=== PATIENT | female | born 1990 | race African-American/Black ===

== ENCOUNTER 2017-02-20 08:17 | Emergency (ER) | payer BC ==
--- NOTE | 2017-02-20 09:50 | ER Document Report ---
ED Neck/Back Problem - General Chief Complaint: back pain,nasea Stated Complaint: NAUSEA Time seen by provider: 09:39 Mode of Arrival: Ambulatory Information source: Patient Notes: 26-year-old female presenting to ED this morning for complain of back pain that radiates around to her abdomen states she has a history of chronic back pain but that it started again this weekend. She states she was working on a computer when the back started hurting she had not done anything. TRAVEL OUTSIDE OF THE [place] IN LAST 30 DAYS: No - HPI Patient complains to provider of: Lower back Onset: Other - Chronic back pain that restarted this weekend Onset: Chronic Timing: Waxing and waning Quality of pain: Achy, Sharp Severity: Moderate Pain Level: 4 Recent injury: No Associated symptoms: Lower back pain, Other - Radiates around to the abdomen Exacerbated by: Movement of trunk, Sitting position Relieved by: Nothing Similar symptoms previously: Yes Recently seen / treated by doctor: No - Related Data Allergies/Adverse Reactions: No Known Allergies Allergy (Verified 02/20/17 08:56) Past Medical History - General Information source: Patient - Social History Smoking Status: Current Every Day Smoker Cigarette use (# per day): Yes - there are pack a day Chew tobacco use (# tins/day): No Smoking Education Provided: Yes - less than 2 minutes Frequency of alcohol use: Rare Drug Abuse: None 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 Lives with: Family Family History: Arthritis, CVA, DM, Hyperlipidemia, Hypertension, Malignancy Patient has suicidal ideation: No Patient has homicidal ideation: No - Past Medical History Cardiac Medical History: Reports: Hx Hypertension - PIH Pulmonary Medical History: Reports: None EENT Medical History: Reports: None Neurological Medical History: Reports: Hx Migraine Endocrine Medical History: Reports: None Renal/ Medical History: Reports: None Malignancy Medical History: Reports: None GI Medical History: Reports: Hx Gastroesophageal Reflux Disease, Hx Irritable Bowel, Hx Colonoscopy, Hx Endoscopy Musculoskeltal Medical History: Reports Hx Musculoskeletal Deformity Skin Medical History: Reports None Psychiatric Medical History: Reports: None, Hx Attention Deficit Hyperactivity Disorder, Hx Depression Infectious Medical History: Reports: None Past Surgical History: Reports: Hx Section - x1, Hx Cholecystectomy, Hx Tubal Ligation, Other - 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 - Immunizations Hx Diphtheria, Pertussis, Tetanus Vaccination: Yes - 04/23/2010 Review of Systems - Review of Systems Constitutional: No symptoms reported EENT: No symptoms reported Cardiovascular: No symptoms reported Respiratory: No symptoms reported Gastrointestinal: Abdominal pain Genitourinary: No symptoms reported Female Genitourinary: No symptoms reported Musculoskeletal: Back pain Skin: No symptoms reported Hematologic/Lymphatic: No symptoms reported Neurological/Psychological: No symptoms reported -: Yes All other systems reviewed and negative Physical Exam - Vital signs Vitals: Temp Pulse Resp BP Pulse Ox 98.5 F 73 16 116/88 H 96 02/20/17 08:24 02/20/17 08:24 02/20/17 08:24 02/20/17 08:24 02/20/17 08:24 Interpretation: Normal - General General appearance: Appears well, Alert - HEENT Head: Normocephalic, Atraumatic Eyes: Normal Pupils: PERRL - Respiratory Respiratory status: No respiratory distress Chest status: Nontender Breath sounds: Normal Chest palpation: Normal - Cardiovascular Rhythm: Regular Heart sounds: Normal auscultation Murmur: No - Abdominal Inspection: Normal Distension: No distension Bowel sounds: Normal Tenderness: Nontender. No: Tender, McBurney's point, Grier's sign, Guarding, Rebound Organomegaly: No organomegaly - Back Back: Normal, Tender - Muscle pain. No: Deformity/step-off, CVA tenderness, Vertebra tenderness, Scars, Scoliosis, Wounds - Extremities General upper extremity: Normal inspection, Nontender, Normal color, Normal ROM , Normal temperature General lower extremity: Normal inspection, Nontender, Normal color, Normal ROM , Normal temperature, Normal weight bearing. No: Petra's sign - Neurological Neuro grossly intact: Yes Cognition: Normal Orientation: AAOx4 Lauren Coma Scale Eye Opening: Spontaneous [place] Coma Scale Verbal: Oriented Lauren Coma Scale Motor: Obeys Commands Lauren Coma Scale Total: 15 Speech: Normal Motor strength normal: LUE, RUE, LLE, RLE Sensory: Normal - Psychological Associated symptoms: Normal affect, Normal mood - Skin Skin Temperature: Warm Skin Moisture: Dry Skin Color: Normal Course - Vital Signs Vital signs: Temp Pulse Resp BP Pulse Ox 98.1 F 64 20 110/76 97 02/20/17 09:45 02/20/17 09:45 02/20/17 09:45 02/20/17 09:45 02/20/17 09:45 Discharge - Discharge Clinical Impression: Nausea Low back pain Qualifiers: Chronicity: chronic Back pain laterality: bilateral Sciatica presence: without sciatica Qualified Code(s): M54.5 - Low back pain Condition: Stable Disposition: HOME, SELF-CARE Instructions: Stretching Exercises for the Back ([facility]) Additional Instructions: LOW BACK PAIN: Three out of every four people will have an episode of disabling back pain during their lifetime. Most commonly the pain is due to straining of the muscles and ligaments in the low back. Usual treatment includes: (1) Rest on a firm surface. Avoid lying on your stomach. (2) Ice pack the painful area. After a few days, gentle heat may be used intermittently to relax the area, or ice packs can be continued. (3) Medication may be needed -- muscle relaxers and antiinflammatory medicines are commonly used. (4) As the back improves, exercises are prescribed to strengthen the back and abdominal muscles. Your doctor will advise you on the proper care for your back at each stage in your recovery. You may be better in a few days -- or healing may take several weeks. If new symptoms of a "herniated disc" (radiation of pain, numbness, or tingling down the back of the leg or weakness in the leg) occur, you should be re-examined. Further testing may be necessary. ICE PACKS: Apply ice packs frequently against the painful area. Many different schedules are recommended, such as "20 minutes on, 20 minutes off" or "one hour ice, two hours rest." If you need to work, you may need to go longer between ice treatments. You should plan to have the area ice packed AT LEAST one fourth of the time. The ice should be applied over the wrap, tape, or splint, or over a layer of cloth -- not directly against the skin. Some ice bags have a built-in cloth and can be put directly on the skin. WARM PACKS: After approximately two days, apply gentle heat (such as a heating pad or hot water bottle) for about 20 to 30 minutes about every two hours -- at least four times daily. Warmth and elevation will help you make a more rapid recovery , and will ease the pain considerably. Do not use HOT heat, and never apply heat for longer than 30 minutes. The continuous heat can invisibly damage skin and muscles -- even when no burn is seen on the surface. Damaged muscles can make you MORE sore. FOLLOW-UP CARE: If you have been referred to a physician for follow-up care, call the physician s office for an appointment as you were instructed or within the next two days. If you experience worsening or a significant change in your symptoms, notify the physician immediately or return to the Emergency Department at any time for re-evaluation. Please complete the patient's satisfaction survey if you get one and return. If you do not receive a survey you can go to [facility] website [email or web address] and place your comments about your very good care. Thank you very much. It was a pleasure be in your medical provider today. Forms: Elevated Blood Pressure, Special Work Note, Smoking Cessation Education Referrals: SAI BETHEA, BAG PATCHER-C [Primary Care Provider] - Follow up as needed
[2017-02-20 09:52] VITALS: BP 110/76
== END 2017-02-20 09:56 | disposition home or self-care (01) ==
LOC: ER 08:17
DX: R11.0 Nausea (principal); M54.5 Low back pain; G89.29 Other chronic pain; F17.210 Nicotine dependence, cigarettes, uncomplicated; Z90.49 Acquired absence of other specified parts of digestive tract; Z98.51 Tubal ligation status
CPT/HCPCS: 99283

== ENCOUNTER 2018-09-13 08:27 | Emergency (ER) | payer BC ==
[2018-09-13] MEDS ORDERED: NORMAL SALINE 1000 ML 1,000 ML IV ONE (08:52)
--- NOTE | 2018-09-13 09:31 | ER Document Report ---
ED GI/ - General Chief Complaint: Lower Abdominal Pain Stated Complaint: ABDOMINAL PAIN Time Seen by Provider: 09/13/18 08:51 Notes: Patient is a 28-year-old female presenting to the emergency department complaining of vaginal bleeding and lower abdominal pain. Patient states her period started on 09/01/2018 lasting until 11 9 to the. Patient states that is a typical period for her. Patient states on 09/10/2018 she had a scant amount of blood in her underwear. States on 09/11/2018 she had no vaginal bleeding or pain on 09/12/2018 she continued with no vaginal bleeding or abdominal pain states this morning on she notes some bright red vaginal bleeding. States she has gone through one pad since this morning when the bleeding started. Patient is also complaining of generalized abdominal pain. Patient states she has a history of ovarian cyst but has never had them burst or any inconsistent vaginal bleeding from them. Patient states she is nauseated but has not vomited, denies fever, diarrhea, dysuria, malodorous vaginal discharge, chest pain, shortness of breath. Patient is stating that she has a generalized headache. Patient denies weakness , lightheadedness, dizziness. Patient states she has no history of anemia or clotting problems. Past medical history: Depression, ovarian cysts Medications: None Allergies: None Surgical history: Cholecystectomy Patient admits to cigarette smoking, marijuana use, occasional EtOH use. TRAVEL OUTSIDE OF THE [place] IN LAST 30 DAYS: No - Related Data Allergies/Adverse Reactions: No Known Allergies Allergy (Verified 09/13/18 08:32) Past Medical History - General Information source: Patient - Social History Smoking Status: Current Every Day Smoker Chew tobacco use (# tins/day): No Frequency of alcohol use: Occasional Drug Abuse: Marijuana Family History: Arthritis, CVA, DM, Hyperlipidemia, Hypertension, Malignancy Patient has suicidal ideation: No Patient has homicidal ideation: No - Past Medical History Cardiac Medical History: Reports: Hx Hypertension - PIH Denies: Hx Coronary Artery Disease, Hx Heart Attack Pulmonary Medical History: Denies: Hx Asthma, Hx Bronchitis, Hx COPD, Hx Pneumonia Neurological Medical History: Reports: Hx Migraine. 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 Denies: Hx Pacemaker - Immunizations Hx Diphtheria, Pertussis, Tetanus Vaccination: Yes - 04/23/2010 Review of Systems - Review of Systems Constitutional: See HPI EENT: No symptoms reported Cardiovascular: See HPI Respiratory: See HPI Gastrointestinal: See HPI Genitourinary: See HPI Female Genitourinary: See HPI Musculoskeletal: No symptoms reported Skin: No symptoms reported Hematologic/Lymphatic: See HPI Neurological/Psychological: See HPI Physical Exam - Vital signs Vitals: Temp Pulse Resp BP Pulse Ox 98.4 F 78 16 117/86 H 100 09/13/18 08:35 09/13/18 08:35 09/13/18 08:35 09/13/18 08:35 09/13/18 08:35 - Notes Notes: GENERAL: Alert, interacts well. No acute distress. HEAD: Normocephalic, atraumatic. EYES: Pupils equal, round, and reactive to light. Extraocular movements intact. ENT: Oral mucosa moist, tongue midline. NECK: Full range of motion. Supple. Trachea midline. LUNGS: Clear to auscultation bilaterally, no wheezes, rales, or rhonchi. No respiratory distress. HEART: Regular rate and rhythm. No murmur ABDOMEN: Soft Non-distended. Bowel sounds present in all 4 quadrants. Generalized tenderness entire abdomen, more so right suprapubic area. EXTREMITIES: Moves all 4 extremities spontaneously. No edema, normal radial and dorsalis pedis pulses bilaterally. No cyanosis. BACK: no cervical, thoracic, lumbar midline tenderness. No saddle anesthesia, normal distal neurovascular exam. NEUROLOGICAL: Alert and oriented x3. Normal speech. cranial nerves II through XII grossly intact PSYCH: Normal affect, normal mood. SKIN: Warm, dry, normal turgor. No rashes or lesions noted. Course - Re-evaluation Re-evalutation: Labs showed no signs of leukocytosis, no signs of anemia or excessive bleeding, no signs of electrolyte abnormalities, no signs of urinary tract infection. Ultrasound shows no signs of either ovary torsion or any other pelvic pathology. Patient states pain has since subsided. 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 Discussed that if pain returns she needs to return to the emergency room or be seen by her primary care provider. Repeat abdominal exam continues to reveal a soft nondistended abdomen. No Grier sign, no McBurney's point tenderness. Patient denies pelvic pain that she initially had on examination. Discussed with patient at length following up with AUTOMATIC VULCANIZING LEAD OPERATOR for abnormal uterine bleeding. Vitals assessed, nursing notes reviewed. - Vital Signs Vital signs: Temp Pulse Resp BP Pulse Ox 98.3 F 64 16 123/85 100 09/13/18 14:20 09/13/18 14:20 09/13/18 14:20 09/13/18 14:20 09/13/18 14:20 - Laboratory Result Diagrams: 09/13/18 09:14 09/13/18 09:14 Laboratory results interpreted by me: 09/13/18 09/13/18 09:14 09:14 MCV 79 L MCH 26.0 L RDW 15.4 H Urine Blood SMALL H Discharge - Discharge Clinical Impression: Pelvic pain, Abnormal uterine bleeding Condition: Stable Disposition: HOME, SELF-CARE Instructions: Pelvic Pain ([facility]) Additional Instructions: As we discussed you have been seen and treated in the emergency room for lower pelvic pain and vaginal bleeding. Your ultrasound shows no abnormalities and either your ovaries or uterus. Your labs also revealed no signs of anemia. You should follow-up with the AUTOMATIC VULCANIZING LEAD OPERATOR listed in this paperwork. Please return to the emergency room for any other concerning symptoms. Referrals: TC SNYDRE DO [ACTIVE STAFF] - Follow up as needed
[2018-09-13 09:58] LABS: ABSOLUTE EOSINOPHILS # (AUTO) 0.3 10^3/uL (0.0-0.6); ABSOLUTE LYMPHOCYTES (AUTO) 1.7 10^3/uL (0.5-4.7); ABSOLUTE MONOCYTES (AUTO) 0.5 10^3/uL (0.1-1.4); ABSOLUTE NEUT (AUTO) 4.7 10^3/uL (1.7-8.2); BASOPHILS % (AUTO) 0.5 % (0-2); EOSINOPHILS % (AUTO) 3.6 % (0-6); HEMATOCRIT 38.4 % (36.0-47.0); HEMOGLOBIN 12.6 g/dL (12.0-15.5); LYMPHOCYTES % (AUTO) 23.6 % (13-45); MEAN CORPUSCULAR HGB CONC 32.8 g/dL (32.0-36.0); MEAN CORPUSCULAR VOLUME 79 fl (80-97); MONOCYTES % (AUTO) 7.4 % (3-13); PLATELET COUNT 231 10^3/uL (150-450); RED BLOOD COUNT 4.85 10^6/uL (3.72-5.28); RED CELL DISTRIBUTION WIDTH 15.4 % (11.5-14.0); SEGMENTED NEUTROPHILS % (AUTO) 64.9 % (42-78); TOTAL CELLS COUNTED % (AUTO) 100 %; WHITE BLOOD COUNT 7.2 10^3/uL (4.0-10.5)
[2018-09-13 10:12] LABS: APPEARANCE,URINE CLEAR; BILIRUBIN,URINE NEGATIVE (NEGATIVE); COLOR,URINE YELLOW; GLUCOSE, URINE NEGATIVE (NEGATIVE); KETONES,URINE NEGATIVE (NEGATIVE); LEUKOCYTE ESTERASE,URINE NEGATIVE (NEGATIVE); NITRITE,URINE NEGATIVE (NEGATIVE); PROTEIN,URINE NEGATIVE (NEGATIVE); URINE SPECIFIC GRAVITY 1.016; UROBILINOGEN,URINE NEGATIVE mg/dL (<2.0)
[2018-09-13 10:18] LABS: ALANINE AMINOTRANSFERASE 30 U/L (9-52); ALBUMIN 4.5 g/dL (3.5-5.0); ALKALINE PHOSPHATASE 86 U/L (38-126); ANION GAP 10 (5-19); ASPARTATE AMINO TRANSFERASE 22 U/L (14-36); BLOOD UREA NITROGEN 10 mg/dL (7-20); CARBON DIOXIDE 29 mmol/L (22-30); CHLORIDE 104 mmol/L (98-107); POTASSIUM 4.5 mmol/L (3.6-5.0); SODIUM 143.4 mmol/L (137-145); TOTAL PROTEIN 7.7 g/dL (6.3-8.2)
[2018-09-13 10:20] LABS: GLUCOSE 78 mg/dL (75-110)
[2018-09-13 10:24] LABS: BILIRUBIN,TOTAL 0.2 mg/dL (0.2-1.3)
[2018-09-13 10:25] LABS: BILIRUBIN,DIRECT 0.2 mg/dL (0.0-0.4)
[2018-09-13] MEDS ORDERED: ONDANSETRON HCL INJ/PF 4 MG/2 ML SDV IV ONE (12:22)
[2018-09-13] MEDS ORDERED: MORPHINE SULFATE 10 MG/ML INJ IV ONE (12:22)
--- NOTE | 2018-09-13 13:30 | RADIOLOGY REPORT (SQ) ---
EXAM DESCRIPTION: U/S NON OB PEL TV W/DOPPLER COMPLETED DATE/TIME: 09/13/2018 1:14 pm REASON FOR STUDY: pelvic pain LMP 09/01/2018 COMPARISON: 09/13/2016 TECHNIQUE: Dynamic and static grayscale images acquired of the pelvis via transvaginal approach and recorded on PACS. Additional selected color Doppler and spectral images recorded. LIMITATIONS: None. FINDINGS: UTERUS: Contour normal. No mass. ENDOMETRIAL STRIPE: No focal or generalized thickening. No masses. CERVIX: 4.1 cm. No nabothian cysts. RIGHT OVARY AND DOPPLER: Normal size. No worrisome masses. Normal arterial vascular flow without evid ence for torsion. LEFT OVARY AND DOPPLER: Normal size. No worrisome masses. Normal arterial vascular flow without evide nce for torsion. FREE FLUID: None noted. OTHER: No other significant finding. MEASUREMENTS: UTERUS: 10.2 x 5.2 x 4.4 cm. ENDOMETRIAL STRIPE: 6 mm. RIGHT OVARY: 4.6 x 2.2 x 2.5 cm. LEFT OVARY: 3.8 x 2 x 2.2 cm. IMPRESSION: NORMAL TRANSVAGINAL PELVIC ULTRASOUND. TECHNICAL DOCUMENTATION: JOB ID: [id number] [employer]- All Rights Reserved Rev-03/16 Reading location - IP/workstation name: [email or web address]
[2018-09-13 14:21] VITALS: BP 123/85
== END 2018-09-13 14:23 | disposition home or self-care (01) ==
LOC: ER 08:27
DX: R10.2 Pelvic and perineal pain (principal); R10.30 Lower abdominal pain, unspecified; N93.8 Other specified abnormal uterine and vaginal bleeding; F17.210 Nicotine dependence, cigarettes, uncomplicated; Z90.49 Acquired absence of other specified parts of digestive tract; Z98.51 Tubal ligation status
CPT/HCPCS: 99284; 96360; 96361; 36415; 85025; 81025; 80053; 81001; 76830; 93976; J7030

== ENCOUNTER 2019-03-07 08:27 | Emergency (ER) | payer BC ==
--- NOTE | 2019-03-07 10:01 | ER Document Report ---
ED Medical Screen (RME) - General Chief Complaint: Abdominal Pain Stated Complaint: PELVIC PAIN Time Seen by Provider: 03/07/19 09:59 Mode of Arrival: Ambulatory Information source: Patient Notes: Patient states she was sleeping and felt a sudden pop in the left side of her abdomen about 1:00 this morning. Patient states she has persistent stabbing sharp pain to this area. Patient denies any nausea vomiting or diarrhea. Patient denies any urinary symptoms. Patient does report a history of ovarian cyst and suspects this today. I have greeted and performed a rapid initial assessment of this patient. A comprehensive ED assessment and evaluation of the patient, analysis of test results and completion of the medical decision making process will be conducted by additional ED providers. TRAVEL OUTSIDE OF THE [place] IN LAST 30 DAYS: No - Related Data Allergies/Adverse Reactions: No Known Allergies Allergy (Verified 03/07/19 08:30) Past Medical History - Social History Chew tobacco use (# tins/day): No Frequency of alcohol use: Occasional Drug Abuse: None - Past Medical History Cardiac Medical History: Reports: Hx Hypertension - PIH Denies: Hx Coronary Artery Disease, Hx Heart Attack Pulmonary Medical History: Denies: Hx Asthma, Hx Bronchitis, Hx COPD, Hx Pneumonia Neurological Medical History: Reports: Hx Migraine. 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 Denies: Hx Pacemaker - Immunizations Hx Diphtheria, Pertussis, Tetanus Vaccination: Yes - 04/23/2010 Physical Exam - Vital signs Vitals: Temp Pulse Resp BP Pulse Ox 99.0 F 65 16 132/95 H 99 03/07/19 08:33 03/07/19 08:33 03/07/19 08:33 03/07/19 08:33 03/07/19 08:33 - Abdominal Tenderness: Tender - left Side abdomen Course - Vital Signs Vital signs: Temp Pulse Resp BP Pulse Ox 99.0 F 65 16 132/95 H 99 03/07/19 08:33 03/07/19 08:33 03/07/19 08:33 03/07/19 08:33 03/07/19 08:33
[2019-03-07 10:43] LABS: ABSOLUTE EOSINOPHILS # (AUTO) 0.2 10^3/uL (0.0-0.6); ABSOLUTE LYMPHOCYTES (AUTO) 1.9 10^3/uL (0.5-4.7); ABSOLUTE MONOCYTES (AUTO) 0.4 10^3/uL (0.1-1.4); BASOPHILS % (AUTO) 0.7 % (0-2); EOSINOPHILS % (AUTO) 4.4 % (0-6); HEMATOCRIT 37.1 % (36.0-47.0); HEMOGLOBIN 12.3 g/dL (12.0-15.5); LYMPHOCYTES % (AUTO) 34.6 % (13-45); MEAN CORPUSCULAR HEMOGLOBIN 26.2 pg (27.0-33.4); MEAN CORPUSCULAR HGB CONC 33.1 g/dL (32.0-36.0); MEAN CORPUSCULAR VOLUME 79 fl (80-97); MONOCYTES % (AUTO) 7.1 % (3-13); PLATELET COUNT 252 10^3/uL (150-450); RED CELL DISTRIBUTION WIDTH 14.8 % (11.5-14.0); SEGMENTED NEUTROPHILS % (AUTO) 53.2 % (42-78); TOTAL CELLS COUNTED % (AUTO) 100 %; WHITE BLOOD COUNT 5.6 10^3/uL (4.0-10.5)
[2019-03-07 11:14] LABS: ALANINE AMINOTRANSFERASE 23 U/L (9-52); ALBUMIN 4.4 g/dL (3.5-5.0); ALKALINE PHOSPHATASE 73 U/L (38-126); ANION GAP 9 (5-19); ASPARTATE AMINO TRANSFERASE 20 U/L (14-36); BILIRUBIN,DIRECT 0.2 mg/dL (0.0-0.4); BILIRUBIN,TOTAL 0.5 mg/dL (0.2-1.3); BLOOD UREA NITROGEN 8 mg/dL (7-20); CALCIUM 9.8 mg/dL (8.4-10.2); CARBON DIOXIDE 28 mmol/L (22-30); CHLORIDE 105 mmol/L (98-107); GLUCOSE 88 mg/dL (75-110); POTASSIUM 4.2 mmol/L (3.6-5.0); SODIUM 141.5 mmol/L (137-145); TOTAL PROTEIN 7.6 g/dL (6.3-8.2)
[2019-03-07 11:29] LABS: APPEARANCE,URINE CLEAR; BILIRUBIN,URINE NEGATIVE (NEGATIVE); COLOR,URINE YELLOW; GLUCOSE, URINE NEGATIVE (NEGATIVE); KETONES,URINE NEGATIVE (NEGATIVE); LEUKOCYTE ESTERASE,URINE NEGATIVE (NEGATIVE); NITRITE,URINE NEGATIVE (NEGATIVE); PROTEIN,URINE NEGATIVE (NEGATIVE); URINE SPECIFIC GRAVITY 1.016; UROBILINOGEN,URINE NEGATIVE mg/dL (<2.0)
--- NOTE | 2019-03-07 13:03 | RADIOLOGY REPORT (SQ) ---
EXAM DESCRIPTION: U/S NON OB PEL TV W/DOPPLER COMPLETED DATE/TIME: 03/07/2019 12:42 pm REASON FOR STUDY: L side abd pain COMPARISON: None. TECHNIQUE: Dynamic and static grayscale images acquired of the pelvis via transvaginal approach and recorded on PACS. Additional selected color Doppler and spectral images recorded. LIMITATIONS: None. FINDINGS: UTERUS: Contour normal. No mass. ENDOMETRIAL STRIPE: No focal or generalized thickening. No masses. CERVIX: No nabothian cysts. RIGHT OVARY AND DOPPLER: Normal size. No worrisome masses. Normal arterial vascular flow without evid ence for torsion. LEFT OVARY AND DOPPLER: Normal size. 2 cm involuting cyst. No worrisome masses. Normal arterial vas cular flow without evidence for torsion. FREE FLUID: None noted. OTHER: No other significant finding. MEASUREMENTS: UTERUS: 10.1 x 5.4 x 4.2 cm ENDOMETRIAL STRIPE: 5 mm RIGHT OVARY: 5.2 x 3.1 x 2.9 cm LEFT OVARY: 4.4 x 2.6 x 2.7 cm IMPRESSION: Age-appropriate exam. TECHNICAL DOCUMENTATION: JOB ID: [id number] [id number] 2010 [employer]- All Rights Reserved Rev-03/16 Reading location - IP/workstation name: [email or web address]
[2019-03-07 14:05] VITALS: BP 131/86
[2019-03-07] MEDS ORDERED: IBUPROFEN 600 MG TABLET PO ONE (14:11)
--- NOTE | 2019-03-07 14:16 | ER Document Report ---
ED GI/ - General Chief Complaint: Abdominal Pain Stated Complaint: PELVIC PAIN Time Seen by Provider: 03/07/19 09:59 Mode of Arrival: Ambulatory Information source: Patient, [facility] Records Notes: Patient is a 29-year-old female comes emergency room complaining of left lower quadrant pain. Patient states about 1 AM this morning woke around sleep as she was moving and felt a pop in the left lower side. She states the pain is been somewhat intense ever since it occurred. She has a past medical history of ruptured ovarian cyst and states that it feels similar to that nature. She denies any nausea vomiting or diarrhea. She does states she has a history of constipation. Last bowel movement was yesterday which was basically normal for her. She also states that the only time she can have a bowel movement is when she is on her periods. Last menstrual periods approximately February 26 and ended on March 04. She is not on any type of control. She also denies any vaginal discharge. TRAVEL OUTSIDE OF THE [place] IN LAST 30 DAYS: No - HPI Patient complains to provider of: Abdominal pain, Pelvic pain. No: , Urinary retention, Vaginal bleeding, Vaginal discharge Onset: This morning Timing/Duration: Sudden, Persistent Quality of pain: Sharp, Stabbing Severity at maximum: Moderate Pain Level: 3 Location: LLQ Vaginal bleeding (Compared to normal period): None. denies: Spotting LMP: March 28, 2019 Associated symptoms: denies: Radiates to back Exacerbated by: Denies Relieved by: Denies Similar symptoms previously: Yes Recently seen / treated by doctor: No - Related Data Allergies/Adverse Reactions: No Known Allergies Allergy (Verified 03/07/19 08:30) Past Medical History - General Information source: Patient - Social History Smoking Status: Current Every Day Smoker Cigarette use (# per day): Yes - Half-pack a day Chew tobacco use (# tins/day): No Smoking Education Provided: Yes Frequency of alcohol use: Occasional Drug Abuse: None Family History: Reviewed & Not Pertinent, Arthritis, CVA, DM, Hyperlipidemia, Hypertension, Malignancy Patient has suicidal ideation: No Patient has homicidal ideation: No - Past Medical History Cardiac Medical History: Reports: Hx Hypertension - PIH Denies: Hx Coronary Artery Disease, Hx Heart Attack Pulmonary Medical History: Denies: Hx Asthma, Hx Bronchitis, Hx COPD, Hx Pneumonia Neurological Medical History: Reports: Hx Migraine. 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 Denies: Hx Pacemaker - Immunizations Hx Diphtheria, Pertussis, Tetanus Vaccination: Yes - 04/23/2010 Review of Systems - Review of Systems Constitutional: No symptoms reported EENT: No symptoms reported Cardiovascular: No symptoms reported Respiratory: No symptoms reported Gastrointestinal: See HPI, Abdominal pain Genitourinary: No symptoms reported Female Genitourinary: No symptoms reported Musculoskeletal: No symptoms reported Skin: No symptoms reported Hematologic/Lymphatic: No symptoms reported Neurological/Psychological: No symptoms reported -: Yes All other systems reviewed and negative Physical Exam - Vital signs Vitals: Temp Pulse Resp BP Pulse Ox 99.0 F 65 16 132/95 H 99 03/07/19 08:33 03/07/19 08:33 03/07/19 08:33 03/07/19 08:33 03/07/19 08:33 Interpretation: Hypertensive - Notes Notes: PHYSICAL EXAMINATION: GENERAL: Well-appearing, well-nourished and in no acute distress. HEAD: Atraumatic, normocephalic. EYES: Pupils equal round and reactive to light, extraocular movements intact, conjunctiva are normal. ENT: Nares patent, oropharynx clear without exudates. Moist mucous membranes. NECK: Normal range of motion, supple without lymphadenopathy LUNGS: Breath sounds clear to auscultation bilaterally and equal. No wheezes rales or rhonchi. HEART: Regular rate and rhythm without murmurs ABDOMEN: Soft, but noted some mild tympany to percussion. Mostly in the upper quadrants supine. Nondistended abdomen. Patient displays bowel sounds in all 4 quadrants. Mild tenderness noted left lower quadrant to palpation. No flank pain or tenderness noted at this time. Female : deferred Musculoskeletal: Normal range of motion, no pitting or edema. No cyanosis. NEUROLOGICAL Normal speech, normal gait. Normal sensory, motor exams PSYCH: Normal mood, normal affect. SKIN: Warm, Dry, normal turgor, no rashes or lesions noted. Course - Re-evaluation Re-evalutation: 03/07/19 14:22 Patient been here an extended amount of time and needed to go pick her children up at school. My physical exam was negative for any suspicious findings. Labs were normal with the exception of a trace of blood in her urine. She had no flank pain to percussion. Pain had somewhat dissipated since her initial presentation. Ultrasounds were negative for any acute findings. Informed patient that at this time I do not believe that further work-up is needed we did discuss that she has a difficult time with bowel movements and that may cause some pain and discomfort she did have a moderate amount of gas to percussion but not any severe distention. I have informed her that should she have increasing amount of pain spike a fever or have any other symptoms to return to ER for a recheck. - Vital Signs Vital signs: Temp Pulse Resp BP Pulse Ox 98.0 F 58 L 16 131/86 H 98 03/07/19 14:04 03/07/19 14:04 03/07/19 14:04 03/07/19 14:04 03/07/19 14:04 - Laboratory Result Diagrams: 03/07/19 10:30 03/07/19 10:30 Laboratory results interpreted by me: 03/07/19 03/07/19 10:22 10:30 MCV 79 L MCH 26.2 L RDW 14.8 H Urine Blood SMALL H Discharge - Discharge Clinical Impression: Abdominal pain Qualifiers: Abdominal location: left lower quadrant Qualified Code(s): R10.32 - Left lower quadrant pain Disposition: HOME, SELF-CARE Instructions: Abdominal Pain ([facility]) Additional Instructions: Home and rest. As we discussed constipation can add a lot of pain and discomfort might try adding MiraLAX [id number] into your diet as we also discussed follow the directions on the back but it should be 1 capful in a glass of water daily and it may take a week to 10 days to really start making a noticeable difference. Secondly you may consider using milk of magnesia the generic version is good. Before bed drink 2 of the shot glass type capfuls followed by 12 ounces of warm tap water and go to bed. In the morning when you wake up drink a hot coffee or tea this should stimulate you to have a nice fluid bowel movement. The ultrasound showed normal pelvic findings for age and no abnormalities with the exception of a 2 cm ovarian cyst. Highly suggest you establish for your yearly pelvic Pap smears etc. He may attempt to use ibuprofen or Tylenol for pain and discomfort. Should you have any concerns or problems or should you spike a fever develop increasing amount of pain return to ER for a recheck please. Forms: Smoking Cessation Education, Parent Work Note, Special Work Note Referrals: [facility] [NO LOCAL MD] - Follow up as needed
== END 2019-03-07 14:15 | disposition home or self-care (01) ==
LOC: ER 08:27
DX: R10.32 Left lower quadrant pain (principal); R31.9 Hematuria, unspecified; R14.0 Abdominal distension (gaseous); F17.210 Nicotine dependence, cigarettes, uncomplicated; Z87.42 Personal history of other diseases of the female genital tract; Z87.19 Personal history of other diseases of the digestive system
CPT/HCPCS: 36415; 76830; 80053; 81001; 84703; 85025; 93976; 99284

== ENCOUNTER 2019-11-27 09:08 | Emergency (ER) | payer BC ==
[2019-11-27] MEDS ORDERED: ACETAMINOPHEN 325 MG TABLET PO ONE (09:37)
[2019-11-27] MEDS ORDERED: IBUPROFEN 800 MG TABLET PO ONE (09:37)
[2019-11-27 10:19] LABS: A TYPE INFLUENZA AG NEGATIVE (NEGATIVE)
[2019-11-27 10:20] LABS: B INFLUENZA AG NEGATIVE (NEGATIVE)
[2019-11-27 11:01] VITALS: BP 115/78
--- NOTE | 2019-11-27 11:05 | ER Document Report ---
HPI - HPI Time Seen by Provider: 11/27/19 09:32 Pain Level: 4 Notes: Otherwise healthy 29-year-old female presenting to the emergency department with complaints of sore throat, dry cough, chills, body aches and headache. Patient denies any documented fever, denies nausea, vomiting or diarrhea. Patient did not get a flu shot. - CONSTITUTIONAL Constitutional: REPORTS: Chills. DENIES: Fever - EENT EENT: REPORTS: Sore Throat. DENIES: Ear Pain, Eye problems - RESPIRATORY Respiratory: REPORTS: Coughing. DENIES: Trouble Breathing - REPRODUCTIVE LMP: tubal Reproductive: DENIES: : Past Medical History - General Information source: Patient - Social History Smoking Status: Current Every Day Smoker Chew tobacco use (# tins/day): No Frequency of alcohol use: Occasional Drug Abuse: None Family History: Reviewed & Not Pertinent, Arthritis, CVA, DM, Hyperlipidemia, Hypertension, Malignancy Patient has suicidal ideation: No Patient has homicidal ideation: No - Past Medical History Cardiac Medical History: Reports: Hx Hypertension - PIH Denies: Hx Coronary Artery Disease, Hx Heart Attack Pulmonary Medical History: Denies: Hx Asthma, Hx Bronchitis, Hx COPD, Hx Pneumonia Neurological Medical History: Reports: Hx Migraine. 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 Denies: Hx Pacemaker - Immunizations Hx Diphtheria, Pertussis, Tetanus Vaccination: Yes - 04/23/2010 Vertical Provider Document - CONSTITUTIONAL Notes: PHYSICAL EXAMINATION: GENERAL: Well-appearing, well-nourished and in no acute distress. HEAD: Atraumatic, normocephalic. EYES: Pupils equal round and reactive to light, extraocular movements intact, conjunctiva are normal. ENT: Nares patent, oropharynx mildly erythematous, without exudates. No tonsillar swelling, uvula midline. Moist mucous membranes. NECK: Normal range of motion, supple without lymphadenopathy LUNGS: Breath sounds clear to auscultation bilaterally and equal. No wheezes rales or rhonchi. HEART: Regular rate and rhythm without murmurs ABDOMEN: Soft, nontender, nondistended abdomen. No guarding, no rebound. No masses appreciated. Female : deferred Musculoskeletal: Normal range of motion, no pitting or edema. No cyanosis. NEUROLOGICAL: Cranial nerves grossly intact. Normal speech, normal gait. Normal sensory, motor exams PSYCH: Normal mood, normal affect. SKIN: Warm, Dry, normal turgor, no rashes or lesions noted. - INFECTION CONTROL TRAVEL OUTSIDE OF THE [place] IN LAST 30 DAYS: No Course - Re-evaluation Re-evalutation: Laboratory 11/27/19 11/27/19 09:46 09:46 Influenza A (Rapid) NEGATIVE Influenza B (Rapid) NEGATIVE Group A Strep Rapid NEGATIVE Patient appears well, nontoxic, influenza and strep were negative. Likely viral illness. Conservative measures will be implemented. Throat culture pending. Patient verbalizes understanding and agreement with plan as outlined in discharge instructions. - Vital Signs Vital signs: Temp Pulse Resp BP Pulse Ox 99.2 F 86 18 115/78 97 11/27/19 10:59 11/27/19 10:59 11/27/19 10:59 11/27/19 10:59 11/27/19 10:59 Discharge - Discharge Clinical Impression: Flu-like symptoms, Viral illness Condition: Stable Disposition: HOME, SELF-CARE Instructions: Viral Syndrome ([facility]) Additional Instructions: Your work-up today was unremarkable. You likely have a viral illness similar to the flu. A throat culture is pending, if there is any abnormality with this on will call you in the next 48 hours. Please drink plenty of fluids, take Tylenol and ibuprofen for any fever or body aches. Purchase an blad-nal-fhedion cough or cold medication for other symptoms. Get plenty of rest. Forms: Return to Work
== END 2019-11-27 11:13 | disposition home or self-care (01) ==
LOC: ER 09:08
DX: J11.1 Influenza due to unidentified influenza virus with other respiratory manifestations (principal); B34.9 Viral infection, unspecified; R05 Cough; M79.10 Myalgia, unspecified site; R51 Headache; F17.200 Nicotine dependence, unspecified, uncomplicated; I10 Essential (primary) hypertension
CPT/HCPCS: 87070; 87077; 87804; 87880; 99283

== ENCOUNTER 2020-02-25 12:44 | Emergency (ER) | payer BC ==
--- NOTE | 2020-02-25 13:02 | ER Document Report ---
ED Medical Screen (RME) - General Chief Complaint: Flank Pain Stated Complaint: LEFT FLANK PAIN Time Seen by Provider: 02/25/20 12:58 Mode of Arrival: Ambulatory Information source: Patient Notes: 29-year-old female with history of fibroids and ovarian cyst presents today with complaints of lower abdominal pain and low back pain. Also complains of urinary frequency. Reports last menstrual period started on Monday finished Monday. Reports she has been having this abdominal pain since that time. Denies fever nausea vomiting diarrhea. Denies vaginal discharge. I have greeted and performed a rapid initial assessment of this patient. A comprehensive ED assessment and evaluation of the patient, analysis of test results and completion of the medical decision making process will be conducted by additional ED providers. TRAVEL OUTSIDE OF THE [place] IN LAST 30 DAYS: No - Related Data Allergies/Adverse Reactions: No Known Allergies Allergy (Verified 11/27/19 09:33) Past Medical History - Past Medical History Cardiac Medical History: Reports: Hx Hypertension - PIH Denies: Hx Coronary Artery Disease, Hx Heart Attack Pulmonary Medical History: Denies: Hx Asthma, Hx Bronchitis, Hx COPD, Hx Pneumonia Neurological Medical History: Reports: Hx Migraine. 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 Denies: Hx Pacemaker - Immunizations Hx Diphtheria, Pertussis, Tetanus Vaccination: Yes - 04/23/2010 Physical Exam - Vital signs Vitals: Temp Pulse Resp BP Pulse Ox 97.8 F 79 16 130/86 H 99 02/25/20 12:49 02/25/20 12:49 02/25/20 12:49 02/25/20 12:49 02/25/20 12:49 Course - Vital Signs Vital signs: Temp Pulse Resp BP Pulse Ox 97.8 F 79 16 130/86 H 99 02/25/20 12:49 02/25/20 12:49 02/25/20 12:49 02/25/20 12:49 02/25/20 12:49
[2020-02-25] MEDS ORDERED: MORPHINE SULFATE 10 MG/ML INJ IV ONE (13:20)
[2020-02-25] MEDS ORDERED: ONDANSETRON HCL INJ/PF 4 MG/2 ML SDV IV ONE (13:20)
--- NOTE | 2020-02-25 13:23 | ER Document Report ---
ED GI/ - General Chief Complaint: Abdominal Pain Stated Complaint: LEFT FLANK PAIN Time Seen by Provider: 02/25/20 12:58 Mode of Arrival: Ambulatory Notes: CHIEF COMPLAINT: Right-sided abdominal pain HPI: 29-year-old female presenting to the emergency department complaining of 5 days of right lower back, right flank and right abdominal pain. Has not had nausea, does state that she has had ovarian cysts in the past also possibly uterine fibroids. Pain was not sudden onset but progressive over the last 5 days. Denies vaginal bleeding or discharge. Denies dysuria. Has not had a fever. Pain worsens with position or movement. Patient points to her entire abdomen now as the site of her discomfort ROS: See HPI - all other systems were reviewed and are otherwise negative Constitutional: no fever Eyes: no drainage, no blurred vision ENT: no runny nose, no sore throat Cardiovascular: no chest pain Resp: no SOB, no cough GI: no vomiting, no diarrhea, + abdominal pain : no dysuria Integumentary: no rash Allergy: no hives Musculoskeletal: no extremity pain or swelling Neurological: no numbness/tingling, no weakness MEDICATIONS: I agree with the patient medications as charted by the RN. ALLERGIES: I agree with the allergies as charted by the RN. PAST MEDICAL HISTORY/PAST SURGICAL HISTORY: Reviewed and agree as charted by RN. SOCIAL HISTORY: Reviewed and agree as charted by RN. FAMILY HISTORY: No significant familial comorbid conditions directly related to patient complaint EXAM: Reviewed vital signs as charted by RN. CONSTITUTIONAL: Alert and oriented and responds appropriately to questions. Well-appearing; well-nourished, mild distress secondary to discomfort HEAD: Normocephalic; atraumatic EYES: PERRL; Conjunctivae clear, sclerae non-icteric ENT: normal nose; no rhinorrhea; moist mucous membranes; pharynx without lesions noted, no uvula edema or deviation, no tonsillar hypertrophy, phonation normal NECK: Supple without meningismus; non-tender; no cervical lymphadenopathy, no masses CARD: RRR; no murmurs, no clicks, no rubs, no gallops; symmetric distal pulses RESP: Normal chest excursion without splinting or tachypnea; breath sounds clear and equal bilaterally; no wheezes, no rhonchi, no rales, pulse oximetry 98% on room air not hypoxic ABD/GI: Obese, normal bowel sounds; non-distended; soft, there is mild generalized tenderness across the abdomen on palpation more focal in the right lower quadrant, no rebound, no guarding; no palpable organomegaly or masses. BACK: The back appears normal and is non-tender to palpation, there is no CVA tenderness EXT: Normal ROM in all joints; non-tender to palpation; no cyanosis, no effusions, no edema SKIN: Normal color for age and race; warm; dry; good turgor; no acute lesions noted NEURO: Moves all extremities equally; Motor and sensory function intact PSYCH: The patient's mood and manner are appropriate. Grooming and personal hygiene are appropriate. MDM: 29-year-old female does have history of ovarian cyst and fibroids presenting with right lower back, right lower quadrant pain but also with some generalized abdominal discomfort. No fevers. Differential is large may include ovarian cyst, fibroid discomfort. Low suspicion for kidney stone as pain does seem to radiate across the entire abdomen. May also be diverticular in nature. Initial screening labs placed in triage will obtain CT imaging initially. TRAVEL OUTSIDE OF THE [place] IN LAST 30 DAYS: No - Related Data Allergies/Adverse Reactions: No Known Allergies Allergy (Verified 11/27/19 09:33) Home Medications: denies Past Medical History - General Information source: Patient - Social History Smoking Status: Former Smoker Chew tobacco use (# tins/day): No Frequency of alcohol use: Rare Drug Abuse: None Family History: Reviewed & Not Pertinent, Arthritis, CVA, DM, Hyperlipidemia, Hypertension, Malignancy Patient has suicidal ideation: No Patient has homicidal ideation: No - Past Medical History Cardiac Medical History: Reports: Hx Hypertension - PIH Denies: Hx Coronary Artery Disease, Hx Heart Attack Pulmonary Medical History: Denies: Hx Asthma, Hx Bronchitis, Hx COPD, Hx Pneumonia Neurological Medical History: Reports: Hx Migraine. 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 Denies: Hx Pacemaker - Immunizations Hx Diphtheria, Pertussis, Tetanus Vaccination: Yes - 04/23/2010 Physical Exam - Vital signs Vitals: Temp Pulse Resp BP Pulse Ox 97.8 F 79 16 130/86 H 99 02/25/20 12:49 02/25/20 12:49 02/25/20 12:49 02/25/20 12:49 02/25/20 12:49 Course - Re-evaluation Re-evalutation: 02/25/20 14:59 CT imaging and lab work did not show acute findings. I discussed this with the patient. No free fluid no appendicitis no diverticulitis no appendicitis. Will send for pelvic ultrasound to ensure that patient has no ovarian issue plan for discharge if ultrasound negative 02/25/20 17:21 I discussed evaluation results at length with the patient. Ultrasound does not show any acute findings or definitive reason for the patient's discomfort. She is not concerned about pelvic infection or STDs at this time and declines pelvic exam. Will refer patient to [facility] and gastroenterology for follow-up. - Vital Signs Vital signs: Temp Pulse Resp BP Pulse Ox 97.8 F 79 16 130/86 H 99 02/25/20 12:58 02/25/20 12:49 02/25/20 12:49 02/25/20 12:49 02/25/20 12:49 - Laboratory Result Diagrams: 02/25/20 13:05 02/25/20 13:05 Laboratory results interpreted by me: 02/25/20 02/25/20 13:05 13:05 Hgb 11.5 L Hct 34.5 L MCV 76 L MCH 25.3 L RDW 16.0 H Lipase 744.1 H Discharge - Discharge Clinical Impression: Abdominal pain Qualifiers: Abdominal location: right lower quadrant Qualified Code(s): R10.31 - Right lower quadrant pain Condition: Stable Disposition: HOME, SELF-CARE Additional Instructions: Your lab work, CT imaging and ultrasound imaging did not show a definitive reason for your abdominal discomfort today. Take the Bentyl to help with abdominal spasm and pain. If you develop fever greater than 101 or have worsening or focal abdominal pain please return for reevaluation. Follow-up with both gastroenterology and [facility] for further evaluation and treatment call for appointment Prescriptions: Dicyclomine HCl [Bentyl 20 mg Tablet] 20 mg PO Q6H PRN #20 tablet PRN Reason: Referrals: ANTHONY DALEY MD [ACTIVE STAFF] - Follow up as needed CHINMAY ADAMS MD [ACTIVE STAFF] - Follow up as needed
[2020-02-25 13:30] LABS: ABSOLUTE EOSINOPHILS # (AUTO) 0.2 10^3/uL (0.0-0.6); ABSOLUTE LYMPHOCYTES (AUTO) 1.6 10^3/uL (0.5-4.7); ABSOLUTE MONOCYTES (AUTO) 0.6 10^3/uL (0.1-1.4); ABSOLUTE NEUT (AUTO) 4.5 10^3/uL (1.7-8.2); BASOPHILS % (AUTO) 0.4 % (0-2); HEMATOCRIT 34.5 % (36.0-47.0); HEMOGLOBIN 11.5 g/dL (12.0-15.5); LYMPHOCYTES % (AUTO) 23.1 % (13-45); MEAN CORPUSCULAR HEMOGLOBIN 25.3 pg (27.0-33.4); MEAN CORPUSCULAR HGB CONC 33.3 g/dL (32.0-36.0); MEAN CORPUSCULAR VOLUME 76 fl (80-97); MONOCYTES % (AUTO) 9.2 % (3-13); PLATELET COUNT 249 10^3/uL (150-450); RED BLOOD COUNT 4.53 10^6/uL (3.72-5.28); SEGMENTED NEUTROPHILS % (AUTO) 64.3 % (42-78); TOTAL CELLS COUNTED % (AUTO) 100 %; WHITE BLOOD COUNT 6.9 10^3/uL (4.0-10.5)
[2020-02-25 13:32] LABS: APPEARANCE,URINE CLEAR; BILIRUBIN,URINE NEGATIVE (NEGATIVE); COLOR,URINE COLORLESS; GLUCOSE, URINE NEGATIVE (NEGATIVE); KETONES,URINE NEGATIVE (NEGATIVE); PROTEIN,URINE NEGATIVE (NEGATIVE); URINE SPECIFIC GRAVITY 1.003; UROBILINOGEN,URINE NEGATIVE mg/dL (<2.0)
[2020-02-25 13:45] LABS: ALBUMIN 4.4 g/dL (3.5-5.0); ALKALINE PHOSPHATASE 91 U/L (38-126); ANION GAP 6 (5-19); ASPARTATE AMINO TRANSFERASE 26 U/L (14-36); BILIRUBIN,TOTAL 0.4 mg/dL (0.2-1.3); BLOOD UREA NITROGEN 12 mg/dL (7-20); CALCIUM 9.3 mg/dL (8.4-10.2); CARBON DIOXIDE 27 mmol/L (22-30); CHLORIDE 104 mmol/L (98-107); GLUCOSE 87 mg/dL (75-110); TOTAL PROTEIN 7.7 g/dL (6.3-8.2)
--- NOTE | 2020-02-25 14:40 | RADIOLOGY REPORT (SQ) ---
EXAM DESCRIPTION: CT ABD/PELVIS WITH IV ONLY IMAGES COMPLETED DATE/TIME: 02/25/2020 2:26 pm REASON FOR STUDY: rlq pain COMPARISON: 04/25/2015 TECHNIQUE: CT scan of the abdomen and pelvis performed using helical scanning technique with dynamic intravenous contrast injection. No oral contrast. Images reviewed with lung, soft tissue, and bone windows. Reconstructed coronal and sagittal MPR images reviewed. Delayed images for evaluation of the urinary system also acquired. All images stored on PACS. All CT scanners at this facility use dose modulation, iterative reconstruction, and/or weight based d osing when appropriate to reduce radiation dose to as low as reasonably achievable (ALARA). [facility]: Dose Right [facility]: CareDose [facility]: Dose Right [facility]: Teradose 4D [facility]: SAW Instrument CONTRAST TYPE AND DOSE: contrast/concentration: Isovue 350.00 mg/ml; Total Contrast Delivered: 93.0 ml; Total Saline Delivered: 71.0 ml RENAL FUNCTION: BUN 12, creatinine 0.61 RADIATION DOSE: CT Rad equipment meets quality standard of care and radiation dose reduction techniq ues were employed. CTDIvol: 10.2 - 14.0 mGy. DLP: 1300 mGy-cm.. LIMITATIONS: None. FINDINGS: LOWER CHEST: No significant findings. No nodules or infiltrates. LIVER: Normal size. No masses. No dilated ducts. SPLEEN: Normal size. No focal lesions. PANCREAS: No masses. No significant calcifications. No adjacent inflammation or peripancreatic fluid collections. Pancreatic duct not dilated. GALLBLADDER: Surgically absent. ADRENAL GLANDS: No significant masses or asymmetry. RIGHT KIDNEY AND URETER: No solid masses. No significant calcifications. No hydronephrosis or hyd roureter. LEFT KIDNEY AND URETER: No solid masses. No significant calcifications. No hydronephrosis or hydr oureter. AORTA AND VESSELS: No aneurysm. No dissection. Renal arteries, SMA, celiac without stenosis. RETROPERITONEUM: No retroperitoneal adenopathy, hemorrhage or masses. BOWEL AND PERITONEAL CAVITY: No masses or inflammatory changes. No free fluid or peritoneal masses. APPENDIX: Normal. PELVIS: No mass. No free fluid. Normal bladder. ABDOMINAL WALL: No masses. No hernias. BONES: No significant or acute findings. OTHER: No other significant finding. IMPRESSION: NO SIGNIFICANT OR ACUTE FINDING IN THE ABDOMEN OR PELVIS ON CT SCAN WITH IV CONTRAST. TECHNICAL DOCUMENTATION: JOB ID: [id number] Quality ID # [id number]: Final reports with documentation of one or more dose reduction techniques (e.g., Au tomated exposure control, adjustment of the mA and/or kV according to patient size, use of iterative reconstruction technique) 2010 [employer]- All Rights Reserved Reading location - IP/workstation name: PHARMAC[facility] SALES ASSISTANTCONE HEALTH MOSES CONE HOSPITALRoberto
[2020-02-25] MEDS ORDERED: KETOROLAC TROMETHAMINE INJ/PF 30 MG/1 ML SDV IV ONE (15:49)
--- NOTE | 2020-02-25 17:12 | RADIOLOGY REPORT (SQ) ---
EXAM DESCRIPTION: U/S NON OB PEL W/DOPPLER IMAGES COMPLETED DATE/TIME: 02/25/2020 4:56 pm REASON FOR STUDY: right pelvic pain COMPARISON: CT abdomen pelvis 02/17/2020 Pelvic ultrasound 03/07/2019 TECHNIQUE: Dynamic and static grayscale images acquired of the pelvis via transabdominal approach an d recorded on PACS. Additional selected color Doppler and spectral images recorded. LIMITATIONS: None. FINDINGS: UTERUS: Contour normal. No mass. Uterus is 8.6 x 6.1 x 4.3 cm size ENDOMETRIAL STRIPE: No focal or generalized thickening. No masses. Endometrium 7 mm thickness CERVIX: No nabothian cysts. Closed, 3.3 cm in length. RIGHT OVARY AND DOPPLER: Normal size, 4.8 x 2.6 x 2.4 cm. No worrisome masses. 12 mm follicle. Norm al arterial vascular flow without evidence for torsion. LEFT OVARY AND DOPPLER: Normal size, 3.8 x 2.9 x 1.7 cm. No worrisome masses. Normal arterial vascula r flow without evidence for torsion. FREE FLUID: None noted. OTHER: No other significant finding. IMPRESSION: NORMAL PELVIC ULTRASOUND BY TRANSABDOMINAL TECHNIQUE. TECHNICAL DOCUMENTATION: JOB ID: [id number] [employer]- All Rights Reserved Rev-03/16 Reading location - IP/workstation name: [email or web address]
[2020-02-25] MEDS ORDERED: DICYCLOMINE HCL 20 MG TABLET PO ONE (17:23)
[2020-02-25 17:38] VITALS: BP 137/92
== END 2020-02-25 17:39 | disposition home or self-care (01) ==
LOC: ER 12:44
DX: R10.31 Right lower quadrant pain (principal); M54.5 Low back pain; Z87.891 Personal history of nicotine dependence; I10 Essential (primary) hypertension
CPT/HCPCS: 99284; 96374; 96375; 36415; 83690; 84703; 85025; 80053; 81001; 76856; 93976; 74177; J3490; J1885; J2270; J2405